=== PATIENT | male | born 1950 | race Hispanic/Latino ===

== ENCOUNTER → 2017-10-30 | Outpatient (CLI) | payer MEDICARE ==
[~2017-10-30] MED LIST: AMBIEN5 MG PO; ASPIR 8181 MG PO; CITALOPRAM HBR20 MG PO; FLOMAX0.4 MG PO; GABAPENTIN300 MG PO; NORVASC5 MG PO; PANTOPRAZOLE SO40 MG PO; SERTRALINE HCL50 MG PO
--- NOTE | 2017-10-30 17:41 | Diagnostic Imaging Report ---
PROCEDURE: X-RAY CHEST, TWO VIEWS COMPARISON: Chest x-ray 01/13/17 INDICATIONS: SHORTNESS OF BREATH FINDINGS: LUNGS: Well-inflated. No soft tissue mass or infiltrate. Vascular markings are normal. PLEURA: No effusions, pleural thickening or pneumothorax. HEART \T\ MEDIASTINUM: The heart is normal in size. Aorta is ectatic and stable in morphology. No hilar lymphadenopathy. BONES \T\ SOFT TISSUES: Stable degenerative changes of the midthoracic spine. DISH should be considered. No focal osseous lesions. CONCLUSION: Stable chest. No active disease. Dictated by: Jose Frazier M.D. on 10/30/2017 at 17:40 Electronically approved by: Jose Frazier M.D. on 10/30/2017 at 17:40
== END | disposition home or self-care (01) ==
LOC: US 13:01
PROVIDERS: ATTEND Urology
DX: C64.2 Malignant neoplasm of left kidney, except renal pelvis (principal); R06.02 Shortness of breath
CPT/HCPCS: 71046; 76770

== ENCOUNTER → 2018-03-13 | Outpatient (CLI) | payer MEDICARE ==
--- NOTE | 2018-03-13 11:40 | Diagnostic Imaging Report ---
PROCEDURE: Frontal and lateral views of the chest. COMPARISON: Patients [facility], , CHEST 2 VIEWS, 10/30/2017, 13:57. INDICATIONS: MALIGNANT NEOPLASM OF KIDNEY FINDINGS: Lines/tubes: None. Lungs: The lungs are well inflated and clear. No pulmonary nodules. There is no evidence of pneumonia or pulmonary edema. Pleura: There is no pleural effusion or pneumothorax. Heart and mediastinum: The heart and the mediastinum are normal. Bones: No acute bony abnormality. IMPRESSION: 1. No acute cardiopulmonary disease. No evidence of metastatic disease in the thorax. Sundar Rodas M.D. Dictated by: Sundar Rodas M.D. on 03/13/2018 at 11:45 Electronically approved by: Sundar Rodas M.D. on 03/13/2018 at 11:45
--- NOTE | 2018-03-13 12:03 | Diagnostic Imaging Report ---
PROCEDURE:US RETROPERITONEAL ( KIDNEY ). COMPARISON:Patients [facility], CT, CT ABDOMEN/PELVIS WO, 02/01/2017, 12:32. Patients [facility], US, US RETROPERITONEAL ( KIDNEY )., 10/30/2017, 13:22. INDICATIONS:Malignant Neoplasm of Kidney TECHNIQUE: Milan-scale and color sonographic images of the bilateral kidneys and bladder where obtained in transverse and longitudinal planes. FINDINGS: RIGHT KIDNEY: 9.9 cm, cortex 2.5 cm Cysts: Several cystic, anechoic lesions are noted: * 3.0 x 2.9 x 2.6 cm lesion in the inferomedial aspect (previously measured 3.1 x 2.6 x 2.1 cm). * 2.5 x 1.5 x 2.0 cm lesion in the mid medial aspect (previously measured 2.3 x 1.2 x 1.3 cm). * 2.3 x 1.6 x 2.0 cm lesion in the mid lateral aspect (not clearly seen in the prior exam.). Solid masses: None Stones: None Hydronephrosis: None Echogenicity: Increased LEFT KIDNEY: 10.1 cm, cortex 2.0 cm Cysts: 2 cystic lesions are noted: * 1.4 x 0.9 x 1.3 cm cystic, anechoic lesion in the mid medial aspect (previously measured 1.0 x 1.0 x 1.0 cm). * 1.7 x 1.4 x 2.0 cm hypoechoic lesion in the mid lateral aspect with questionable thin nonvascular septation (previously measured 1.1 x 0.9 x 1.0 cm). Solid masses: None Stones: None Hydronephrosis: None Echogenicity: Increased Bladder: No focal lesions. Bilateral ureteral jets identified. Small amount of debris is noted in the dependent portion of the bladder lumen. Prostate: 4.2 x 3.6 x 4.4 cm (estimated volume of 36 mL). Nodular contour CONCLUSION: 1. Normal bilateral renal size. Bilateral increased renal cortical echogenicity, consistent with medical renal disease. No hydronephrosis or obstruction. 2. No solid masses are identified. 3. Cystic anechoic lesions consistent with simple cysts in bilateral kidneys are relatively stable, when accounting for technical differences. 4. A 2.0 cm lesion in the left mid lateral aspect is minimally complex. Attention to this lesion on followup renal ultrasound is recommended. 5. Small amount of debris in the dependent portion of the bladder lumen, which may relate to infection. 6. Prostatic enlargement, likely due to BPH. Sundar Rodas M.D. Dictated by: uSndar Rodas M.D. on 03/13/2018 at 12:08 Electronically approved by: Sundar Rodas M.D. on 03/13/2018 at 12:08
== END ==
LOC: US 10:15
PROVIDERS: ATTEND Urology
DX: C64.2 Malignant neoplasm of left kidney, except renal pelvis (principal)
CPT/HCPCS: 71046; 76770

== ENCOUNTER → 2018-09-03 | Outpatient (CLI) | payer MEDICARE ==
--- NOTE | 2018-09-03 13:45 | Diagnostic Imaging Report ---
Frontal and lateral views of the chest. HISTORY: Renal cancer, left COMPARISON: None available. DISCUSSION: Lungs: Low lung volumes result in bibasilar vascular crowding, accentuation of the pulmonary interstitial markings, central pulmonary vasculature, and the cardiac silhouette. Allowing for these limitations, the findings are as follows: Bibasilar atelectasis, could obscure underlying pathology. Otherwise, no evidence of a consolidative pneumonia or pulmonary alveolar edema. Pleura: No pleural effusion or pneumothorax. Heart and mediastinum: The cardiomediastinal silhouette appears unremarkable. Bones: Multilevel flowing nonmarginal syndesmophytes, compatible with DISH (Diffuse idiopathic skeletal hyperostosis). IMPRESSION: 1. Bibasilar atelectasis. If there is concern for metastatic disease, a CT of the chest without contrast would provide a more sensitive evaluation. 2. Otherwise, no acute radiographic abnormality. Signed by: Dr. Markel Smith D.O., M.M.M. on 09/03/2018 1:42 PM
--- NOTE | 2018-09-03 16:33 | Diagnostic Imaging Report ---
EXAM: Renal Ultrasound INDICATION: Left renal malignancy, status post partial nephrectomy 2 years prior. COMPARISON: Renal ultrasound 03/13/2018. TECHNIQUE: Transverse and longitudinal images of the kidneys and bladder were obtained. FINDINGS: Right Kidney: Length: Measures 10.9 x 6.0 x 4.7 cm Appearance: Increased echogenicity. Collecting system: No hydronephrosis Stones: None Cyst/Mass: No evidence of solid mass. Multiple simple appearing anechoic right-sided renal cysts, largest measuring up to 3.1 cm in the inferior pole medially. Left Kidney: Length: Measures 11.4 x 5.3 x 5.2 cm Appearance: Increased echogenicity. Collecting system: No hydronephrosis Stones: None Cyst/Mass: There is a minimally complex cystic lesion measuring up to 1.6 x 1.0 x 1.1 cm in the left mid pole kidney with internal echogenicity, which was present on the prior ultrasound. There is a 1.8 x 1.2 x 1.4 cm predominately anechoic cyst in the left mid pole kidney laterally with possible thin septation, similar to prior ultrasound. No evidence of vascular flow. Bladder: Unremarkable in appearance. Bilateral ureteral jets are noted. IMPRESSION: No evidence of solid renal mass. Minimally complex cystic lesions in the left mid pole kidney measuring up to 1.6 cm and 1.8 cm, similar appearing to prior ultrasound accounting for differences in technique. Attention on follow-up ultrasound is suggested. Additional simple right sided renal cysts. Increased bilateral renal echogenicity, consistent with medical renal disease. Signed by: Dr. Mayito Laird MD on 09/03/2018 2:49 PM
== END ==
LOC: US 12:58
PROVIDERS: ATTEND Urology
DX: C64.2 Malignant neoplasm of left kidney, except renal pelvis (principal)
CPT/HCPCS: 71046; 76770

== ENCOUNTER → 2019-03-07 | Outpatient (CLI) | payer MEDICARE ==
--- NOTE | 2019-03-07 12:16 | Diagnostic Imaging Report ---
EXAMINATION: PA and lateral views of the chest. COMPARISON: Chest two views 09/03/2018 CLINICAL HISTORY: Malignant neoplasm of kidney DISCUSSION: Lines/tubes: None. Lungs: The lungs are well inflated and clear. There is no evidence of pneumonia or pulmonary edema. Pleura: There is no pleural effusion or pneumothorax. Heart and mediastinum: Cardiomediastinal silhouette is unremarkable. Pulmonary vasculature is normal. Bones and soft tissues: No acute bony abnormalities. Degenerative changes in the thoracic spine IMPRESSION: No acute cardiopulmonary abnormalities. No evidence of metastatic disease in the thorax. Signed by: Dr. Sundar Rodas M.D. on 03/07/2019 12:13 PM
--- NOTE | 2019-03-07 14:08 | Diagnostic Imaging Report ---
EXAM: Renal Ultrasound INDICATION: ^MALIG NEOP OF LT KIDNEY COMPARISON: None TECHNIQUE: Transverse and longitudinal images of the kidneys and bladder were obtained. FINDINGS: Right Kidney: Length: 11.1 cm Appearance: Normal echogenicity. Small amount of fluid adjacent to the kidney. Collecting system: No hydronephrosis Stones: None Cyst/Mass: 1.2 x 0.8 x 0.8 cm lower pole cystic lesion with internal hyperechoic area without shadowing. 1.2 x 1.5 x 2.4 cm mid pole anechoic cyst 2.8 x 2.6 x 2.6 cm midpole anechoic cyst. 2.0 x 2.0 x 2.2 cm anechoic upper pole cyst. Left Kidney: Length: 9.2 cm Appearance: Normal echogenicity. Collecting system: No hydronephrosis Stones: None Cyst/Mass: 2.7 x 1.1 x 3.0 cm lower pole anechoic cyst. 1.3 x 0.9 x 1.1 cm hyperechoic focus at the midpole. Bladder: No bladder mass or calculi. Prevoid volume estimate of 71 cc. Right ureteral jet visualized. Prostate: Prostate measures 3.3 x 2.9 x 3.7 cm with estimated volume of 18.6 cc. IMPRESSION: Multiple right renal cysts, essentially unchanged in size compared to the prior renal ultrasound of 09/03/2018. The right lower pole cyst contains an internal hyperechoic area without shadowing which appears new and may represent a soft tissue component although no associated vascularity is seen. Interval increase in size of left lower pole renal cyst, previously measuring up to 1.8 cm and now up to 3 cm. New 1.3 cm hyperechoic midpole focus without shadowing, possibly representing prominent renal sinus fat versus a true mass. RECOMMENDATIONS: Renal mass protocol CT for further evaluation. Signed by: Terrence Jones MD on 03/07/2019 2:05 PM
== END ==
LOC: US 11:45
PROVIDERS: ATTEND Urology
DX: C64.2 Malignant neoplasm of left kidney, except renal pelvis (principal)
CPT/HCPCS: 71046; 76770

== ENCOUNTER → 2019-04-10 | Outpatient (CLI) | payer MEDICARE ==
--- NOTE | 2019-04-10 12:42 | Diagnostic Imaging Report ---
MRI of the abdomen, without contrast, 04/10/2019. History: Renal lesion. Comparison: Ultrasound 03/07/2019, 09/03/2018. Technique: Multiplanar, multisequence imaging of the abdomen was performed without contrast secondary to renal insufficiency. Discussion: Characterization of the renal lesion is limited without IV contrast. Multiple oval circumscribed T1 hypointense T2 hyperintense lesions are present scattered throughout both kidneys. The largest cyst on the right is simple in appearance and located in the interpolar region measuring 3.3 x 3.0 x 3.3 cm. A 1.2 cm right lower pole cyst is also noted without evident mural nodule. In the left renal lower pole, a 2.0 x 2.4 x 2.7 cm cyst is present containing thin septations. The liver, gallbladder, spleen, pancreas, and adrenal glands are unremarkable. The visualized loops of bowel are normal. There is no evidence of adenopathy. Degenerative changes are noted throughout the lumbar spine. IMPRESSION: Limited evaluation without IV contrast. Multiple renal cysts are present bilaterally, including a minimally complex cyst in the left lower pole. The hyperechoic areas described on the ultrasound are not apparent on this noncontrast MRI. Recommend continued sonographic follow-up. Signed by: William Steward on 04/10/2019 12:38 PM
== END ==
LOC: MRI 09:29
PROVIDERS: ATTEND Urology
DX: N18.9 Chronic kidney disease, unspecified (principal)
CPT/HCPCS: 74181

== ENCOUNTER → 2020-04-22 | Outpatient (CLI) | payer MEDICARE ==
--- NOTE | 2020-04-22 16:14 | Diagnostic Imaging Report ---
Exam: CHEST 2 VIEWS Date: 04/22/2020 4:09 PM INDICATION: ^[id number] ^[id number] ^MALIGANT NEOPLASM OF KIDNEY Comparison: 03/07/2019 FINDINGS: Lines/Tubes:None Lungs:The lungs are well inflated. No focal consolidation or pulmonary edema. Pleura:No pleural effusion. No pneumothorax. Heart/Mediastinum:The cardiomediastinal silhouette is normal in size and contour. Bones/Soft Tissues: No acute osseous abnormality. Moderate multilevel degenerative changes of the thoracic spine are noted. Upper abdomen: On lateral view there are a few prominent small bowel loops. IMPRESSION: Negative for acute intrathoracic process. On the lateral view a few dilated loops of small bowel are identified, correlate for any symptoms of obstruction. Consider dedicated imaging if clinically indicated. Signed by: Román Aragon MD on 04/22/2020 4:11 PM
--- NOTE | 2020-04-22 17:00 | Diagnostic Imaging Report ---
EXAM: Renal Ultrasound INDICATION: ^MALIGNANT NEOPLASM OF LEFT KIDNEY COMPARISON: MRI dated 04/10/2019 and ultrasound dated 03/07/2019 TECHNIQUE: Transverse and longitudinal images of the kidneys and bladder were obtained. FINDINGS: Right Kidney: Length: 11.2 cm Appearance: Normal echogenicity. Collecting system: No hydronephrosis Stones: Similar appearance of a hyperechoic 1.5 cm shadowing area at the lower pole. Cyst/Mass: Multiple cysts are noted within the right kidney with the largest measuring up to 3.4 cm at the right lower pole. Previously identified lower pole cystic lesion with internal hyperechoic area without shadowing is partially visualized. Left Kidney: Length: 11.0 cm Appearance: Normal echogenicity. Collecting system: No hydronephrosis Stones: Hyperechoic 0.8 cm lesion noted at the inferior pole the left kidney. Cyst/Mass: Multiple cysts are noted within the left kidney with the largest measuring up to 2.1 cm at the lateral midpole. Bladder: Bladder is partially distended. The ureteral jets are not visualized. Prostate is within normal limits with a volume of 29 cc. IMPRESSION: 1. Redemonstration of multiple bilateral renal cysts. No significant change of mildly complex right inferior pole and multiple other anechoic simple appearing renal cysts. 2. Negative for hydronephrosis or obstructing calculus. Stable areas of hyperechoic nonshadowing appearance measuring up to 1.5 cm of the right lower pole and 0.8 cm at the left lower pole without MRI correlate are indeterminate. Consider postcontrast evaluation with renal protocol CT or MRI. Signed by: Román Aragon MD on 04/22/2020 4:57 PM
== END ==
LOC: US 15:21
PROVIDERS: ATTEND Urology
DX: C64.2 Malignant neoplasm of left kidney, except renal pelvis (principal)
CPT/HCPCS: 71046; 76770

== ENCOUNTER → 2020-05-25 | Outpatient (CLI) | payer MEDICARE | LOC: MRI 13:53 | PROVIDERS: ATTEND Urology | DX: C64.2 Malignant neoplasm of left kidney, except renal pelvis (principal); N18.9 Chronic kidney disease, unspecified | CPT/HCPCS: 74181 ==

== ENCOUNTER → 2021-02-24 | Outpatient (CLI) | payer MEDICARE | LOC: US 13:41 | PROVIDERS: ATTEND Urology | DX: C64.2 Malignant neoplasm of left kidney, except renal pelvis (principal) | CPT/HCPCS: 71046; 76770 ==

== ENCOUNTER → 2021-09-06 | Outpatient (CLI) | payer MEDICARE | LOC: US 08:43 | PROVIDERS: ATTEND Urology | DX: C64.2 Malignant neoplasm of left kidney, except renal pelvis (principal) | CPT/HCPCS: 71046; 76770 ==

== ENCOUNTER → 2022-05-16 | Outpatient (CLI) | payer MEDICARE | LOC: US 09:57 | PROVIDERS: ATTEND Urology | DX: C64.2 Malignant neoplasm of left kidney, except renal pelvis (principal); N18.9 Chronic kidney disease, unspecified | CPT/HCPCS: 76770 ==

== ENCOUNTER → 2022-06-09 | Outpatient (CLI) | payer MEDICARE | LOC: CT 15:27 | PROVIDERS: ATTEND Urology | DX: N20.0 Calculus of kidney (principal) | CPT/HCPCS: 74176 ==

== ENCOUNTER → 2022-12-13 | Outpatient (CLI) | payer MEDICARE | LOC: US 08:53 | PROVIDERS: ATTEND Urology | DX: C64.2 Malignant neoplasm of left kidney, except renal pelvis (principal); D41.01 Neoplasm of uncertain behavior of right kidney; N20.0 Calculus of kidney | CPT/HCPCS: 71046; 74176; 76770 ==

== ENCOUNTER → 2023-12-15 | Outpatient (REF) | payer MEDICARE | LOC: RAD 13:13 | PROVIDERS: ATTEND Internal Medicine | DX: M25.472 Effusion, left ankle (principal) ==

== ENCOUNTER 2024-03-29 08:44 | Inpatient (IN) | payer MEDICARE ==
[~2024-03-29] VITALS: Ht 162.6 cm; Wt 69.4 kg
[~2024-03-29 08:44] MED LIST changes: +FARXIGA10 MG PO; +FISH OIL 1,0001 EAC7 PO; +FUROSEMIDE40 MG PO; +LIPITOR10 MG PO; +METOPROLOL SUCC25 MG PO; +RAYALDEE30 MCG PO
[2024-03-29 10:02] LABS: BASOPHILS % 0.3 % (0.0-1.0); EOSINOPHILS # (AUTO) 0.3 (0.0-0.4); EOSINOPHILS % 4.4 % (0.0-6.0); HEMATOCRIT 36.4 % (38.2-49.6); HEMOGLOBIN 11.2 g/dL (14.0-18.0); LYMPHOCYTES # (AUTO) 1.9 (1.0-3.2); LYMPHOCYTES % 26.8 % (18.0-39.1); MEAN CORPUSCULAR HEMOGLOBIN 24.8 pg (28-32); MEAN CORPUSCULAR HGB CONC 30.8 g/dL (31-35); MEAN CORPUSCULAR VOLUME 80.7 fL (81-99); MONOCYTES # (AUTO) 0.6 (0.2-0.8); MONOCYTES % 8.1 % (4.4-11.3); NEUTROPHILS # (AUTO) 4.2 (2.1-6.9); PLATELET COUNT 148 x10e3/uL (140-360); RED BLOOD COUNT 4.51 x10e6/uL (4.3-5.7); RED CELL DISTRIBUTION WIDTH 20.9 % (11.7-14.4); WHITE BLOOD COUNT 7.05 x10e3/uL (4.8-10.8)
[2024-03-29] MEDS: SODIUM CHLORIDE 0.9% 500ML 500 ML ONE (10:10)
[2024-03-29] MEDS: PIPERACILLIN/TAZOBACTAM 3.375 GM VIAL ONE (10:11)
[2024-03-29] MEDS: GENTAMICIN 80MG/NS 100 ML 200 ML IV ONE (10:12)
[2024-03-29 10:14] LABS: INR 0.98; PROTHROMBIN TIME 13.5 seconds (11.9-14.5)
[2024-03-29 10:16] LABS: PARTIAL THROMBOPLASTIN TIME 27.9 seconds (23.8-35.5)
[2024-03-29 10:19] LABS: CALCIUM 9.2 mg/dL (8.4-10.2); CREATININE, SERUM 5.96 mg/dL (0.72-1.25)
[2024-03-29] MEDS ORDERED: FLUCONAZOLE 200 MG/100 ML IV ONE (11:38)
[2024-03-29] MEDS: FLUCONAZOLE 100 MG/NS 50 ML 50 ML IV SCH (12:30)
[2024-03-29] MEDS ORDERED: IOPAMIDOL 610MG/1ML 300 MG/ML VIAL IV ONE (13:02)
[2024-03-29] MEDS ORDERED: FENTANYL CITRATE/PF 100MCG/2 ML INJ ONE (13:38)
[2024-03-29] MEDS ORDERED: PROPOFOL IV EMULSION 10 MG/ML 20 ML VIAL ONE (14:13)
[2024-03-29] MEDS ORDERED: ONDANSETRON HCL INJ 2MG/ML 2ML 2 MG/ML VIAL ONE (14:13)
[2024-03-29] MEDS ORDERED: EPHEDRINE SULFATE INJ 50 MG/ML VIAL ONE (14:13)
[2024-03-29] MEDS ORDERED: DEXAMETHASONE SOD PHOS INJ 4 MG/ML SDV ONE (14:13)
[2024-03-29] MEDS ORDERED: SEVOFLURANE INHAL SOLN 250 ML PEN BTL ONE (14:13)
[2024-03-29] MEDS ORDERED: ACETAMINOPHEN 1000 MG/100 ML IV ONE (14:13)
[2024-03-29] MEDS ORDERED: LIDOCAINE HCL 2% LOCAL INJ 5 ML SDV VIAL INJ ONE (14:13)
[2024-03-29] MEDS ORDERED: ACETAMINOPHEN/CODEINE 300MG - 30MG TAB PO PRN (14:45)
[2024-03-29] MEDS ORDERED: ONDANSETRON HCL INJ 2MG/ML 2ML 2 MG/ML VIAL IV PRN (14:45)
[2024-03-29] MEDS ORDERED: DIPHENHYDRAMINE HCL 25 MG CAP PO PRN (14:45)
[2024-03-29] MEDS ORDERED: ACETAMINOPHEN 1000 MG/100 ML IV PRN (14:45)
[2024-03-29 15:57] LABS: BASOPHILS % 0.2 % (0.0-1.0); EOSINOPHILS # (AUTO) 0.2 (0.0-0.4); EOSINOPHILS % 2.1 % (0.0-6.0); HEMATOCRIT 35.7 % (38.2-49.6); HEMOGLOBIN 11.2 g/dL (14.0-18.0); LYMPHOCYTES # (AUTO) 1.3 (1.0-3.2); LYMPHOCYTES % 15.6 % (18.0-39.1); MEAN CORPUSCULAR HEMOGLOBIN 25.1 pg (28-32); MEAN CORPUSCULAR HGB CONC 31.4 g/dL (31-35); MEAN CORPUSCULAR VOLUME 79.9 fL (81-99); MONOCYTES # (AUTO) 0.2 (0.2-0.8); NEUTROPHILS # (AUTO) 6.4 (2.1-6.9); NEUTROPHILS % 79.7 % (38.7-80.0); PLATELET COUNT 120 x10e3/uL (140-360); RED BLOOD COUNT 4.47 x10e6/uL (4.3-5.7); RED CELL DISTRIBUTION WIDTH 20.7 % (11.7-14.4); WHITE BLOOD COUNT 8.02 x10e3/uL (4.8-10.8)
[2024-03-29 16:13] LABS: ANION GAP 15.7 mmol/L (8-16); CALCIUM 8.7 mg/dL (8.4-10.2); CREATININE, SERUM 5.65 mg/dL (0.72-1.25); POTASSIUM 3.7 mmol/L (3.5-5.1)
[2024-03-29 17:00] VITALS: BP 125/76; PULSE 82; RESP 20; TEMP 98.1; O2SAT 100
[2024-03-29] MEDS: SENNA-S TABLET PO SCH (17:00)
[2024-03-29] MEDS ORDERED: DEXTROSE 50% SYRINGE 50 ML IV PRN (17:30)
[2024-03-29] MEDS ORDERED: MELATONIN 3 MG TAB PO PRN (17:45)
[2024-03-29 18:13] VITALS: BP 125/76; PULSE 82; RESP 20; TEMP 98.1; O2SAT 100
[2024-03-29 20:00] VITALS: BP 124/82; PULSE 102; RESP 18; TEMP 97.9; O2SAT 98
[2024-03-29] MEDS: PHENAZOPYRIDINE HCL 100 MG TAB PO PRN (20:24)
[2024-03-29] MEDS: INSULIN REGULAR, HUMAN 100 UNIT/1 ML SQ SCH (21:00)
[2024-03-29] MEDS: ATORVASTATIN 40 MG TAB PO SCH (22:01)
[2024-03-29] MEDS: SODIUM CHLORIDE 0.9% 1000ML 1,000 ML IV SCH (22:01)
[2024-03-30] VITALS: BP 123/77; PULSE 83; RESP 18; TEMP 97.8; O2SAT 99
[2024-03-30 04:00] VITALS: BP 145/83; PULSE 70; RESP 18; TEMP 97.6; O2SAT 97
[2024-03-30 06:15] LABS: BASOPHILS % 0.2 % (0.0-1.0); HEMATOCRIT 34.2 % (38.2-49.6); HEMOGLOBIN 10.7 g/dL (14.0-18.0); LYMPHOCYTES # (AUTO) 0.7 (1.0-3.2); LYMPHOCYTES % 5.5 % (18.0-39.1); MEAN CORPUSCULAR HEMOGLOBIN 25.3 pg (28-32); MEAN CORPUSCULAR HGB CONC 31.3 g/dL (31-35); MEAN CORPUSCULAR VOLUME 80.9 fL (81-99); MONOCYTES # (AUTO) 0.5 (0.2-0.8); MONOCYTES % 4.1 % (4.4-11.3); NEUTROPHILS # (AUTO) 11.3 (2.1-6.9); NEUTROPHILS % 89.6 % (38.7-80.0); PLATELET COUNT 132 x10e3/uL (140-360); RED BLOOD COUNT 4.23 x10e6/uL (4.3-5.7); WHITE BLOOD COUNT 12.65 x10e3/uL (4.8-10.8)
[2024-03-30 06:40] LABS: CALCIUM 9.2 mg/dL (8.4-10.2); CREATININE, SERUM 6.1 mg/dL (0.72-1.25)
[2024-03-30 08:00] VITALS: BP 136/75; PULSE 76; RESP 18; TEMP 97.6; O2SAT 98
[2024-03-30] MEDS: PANTOPRAZOLE SOD 40 MG TABEC PO SCH (09:00)
[2024-03-30] MEDS: SERTRALINE HCL 50 MG TAB PO SCH (09:01)
[2024-03-30] MEDS: GABAPENTIN 300 MG CAP PO SCH (09:01)
[2024-03-30] MEDS: FUROSEMIDE 20 MG TAB PO SCH (09:06)
[2024-03-30 16:00] VITALS: BP 134/77; PULSE 73; RESP 18; TEMP 98; O2SAT 99
[2024-03-30] MEDS: GENTAMICIN SULFATE 15 GM CR TP SCH (17:11)
[2024-03-30 20:00] VITALS: BP_SYST 134; BP_SYST 136; BP_DIAS 73; BP_DIAS 77; PULSE 69; PULSE 73; RESP 18; TEMP 97.3; TEMP 98; O2SAT 100; O2SAT 99
[2024-03-30 20:31] VITALS: BP 136/73; PULSE 69; RESP 18; TEMP 97.3; O2SAT 100
[2024-03-31] VITALS (9 sets, daily range): BP systolic 128–133; BP diastolic 64–74; PULSE 68–80; RESP 18; TEMP 97.6–98.7; O2SAT 98–100
[2024-03-31 07:45] LABS: BASOPHILS % 0.1 % (0.0-1.0); EOSINOPHILS % 0.3 % (0.0-6.0); HEMATOCRIT 29.1 % (38.2-49.6); HEMOGLOBIN 9.1 g/dL (14.0-18.0); LYMPHOCYTES # (AUTO) 1.3 (1.0-3.2); LYMPHOCYTES % 14.6 % (18.0-39.1); MEAN CORPUSCULAR HEMOGLOBIN 25.4 pg (28-32); MEAN CORPUSCULAR HGB CONC 31.3 g/dL (31-35); MEAN CORPUSCULAR VOLUME 81.3 fL (81-99); MONOCYTES # (AUTO) 0.6 (0.2-0.8); MONOCYTES % 7.1 % (4.4-11.3); NEUTROPHILS # (AUTO) 6.8 (2.1-6.9); NEUTROPHILS % 77.3 % (38.7-80.0); PLATELET COUNT 116 x10e3/uL (140-360); RED BLOOD COUNT 3.58 x10e6/uL (4.3-5.7); RED CELL DISTRIBUTION WIDTH 21.4 % (11.7-14.4); WHITE BLOOD COUNT 8.77 x10e3/uL (4.8-10.8)
[2024-03-31 08:07] LABS: CALCIUM 8.4 mg/dL (8.4-10.2); CREATININE, SERUM 6.08 mg/dL (0.72-1.25)
[2024-03-31] MEDS ORDERED: LACTULOSE SYRUP 20 GM/30 ML UDC PO PRN (09:00)
[2024-03-31] MEDS: LACTULOSE SYRUP 20 GM/30 ML UDC PO ONE (09:10)
[2024-04-01] VITALS: BP 131/71; PULSE 87; RESP 18; TEMP 97.6; O2SAT 100
[2024-04-01 04:00] VITALS: BP 135/72; PULSE 83; RESP 18; TEMP 98.4; O2SAT 100
[2024-04-01 05:09] LABS: BASOPHILS % 0.1 % (0.0-1.0); EOSINOPHILS # (AUTO) 0.2 (0.0-0.4); EOSINOPHILS % 2.6 % (0.0-6.0); HEMATOCRIT 29.3 % (38.2-49.6); HEMOGLOBIN 8.7 g/dL (14.0-18.0); LYMPHOCYTES # (AUTO) 1.5 (1.0-3.2); LYMPHOCYTES % 19.8 % (18.0-39.1); MEAN CORPUSCULAR HEMOGLOBIN 24.5 pg (28-32); MEAN CORPUSCULAR HGB CONC 29.7 g/dL (31-35); MEAN CORPUSCULAR VOLUME 82.5 fL (81-99); MONOCYTES # (AUTO) 0.6 (0.2-0.8); MONOCYTES % 7.2 % (4.4-11.3); NEUTROPHILS # (AUTO) 5.3 (2.1-6.9); NEUTROPHILS % 69.8 % (38.7-80.0); PLATELET COUNT 124 x10e3/uL (140-360); RED BLOOD COUNT 3.55 x10e6/uL (4.3-5.7); RED CELL DISTRIBUTION WIDTH 21.6 % (11.7-14.4); WHITE BLOOD COUNT 7.63 x10e3/uL (4.8-10.8)
[2024-04-01 05:29] LABS: CALCIUM 8.2 mg/dL (8.4-10.2); CREATININE, SERUM 5.86 mg/dL (0.72-1.25)
[2024-04-01 07:46] LABS: BASOPHILS % (MANUAL) 2 % (0-1.5); EOSINOPHILS % (MANUAL) 3 % (0-7); LYMPHOCYTES % (MANUAL) 26 % (19-48); MONOCYTES % (MANUAL) 4 % (3.4-9.0); NEUTROPHILS % (MANUAL) 65 % (40-74)
[2024-04-01 07:47] LABS: ANISOCYTOSIS MODERATE; HYPOCHROMASIA MODERATE; PLATELET ESTIMATE SLIGHTLY DECREASED; PLATELET MORPHOLOGY COMMENT NORMAL; RBC MORPHOLOGY COMMENT ABNORMAL
[2024-04-01 09:06] VITALS: BP 127/66; PULSE 87; RESP 19; TEMP 98.4; O2SAT 100
[2024-04-01 09:52] VITALS: BP 127/66; PULSE 87; RESP 19; TEMP 98.4; O2SAT 100
[2024-04-01] MEDS ORDERED: HEPARIN SOD (PORCINE) 1000 UNIT/ML SDV IV PRN (10:15)
[2024-04-01] MEDS ORDERED: SODIUM CHLORIDE 0.9% 1000ML 2,000 ML IV PRN (10:15)
[2024-04-01] MEDS ORDERED: ONDANSETRON HCL 4 MG ORAL DISINTEGRATING TAB PO PRN (10:30)
[2024-04-01] MEDS: FLUCONAZOLE 100 MG TAB PO SCH (11:52)
[2024-04-01 16:02] VITALS: BP 144/87; PULSE 85; RESP 20; TEMP 98.1; O2SAT 100
[2024-04-01 20:00] VITALS: BP 142/72; PULSE 75; RESP 18; TEMP 98.6; O2SAT 97
[2024-04-02] VITALS (7 sets, daily range): BP systolic 139–154; BP diastolic 72–85; PULSE 75–86; RESP 16–20; TEMP 97.5–98.9; O2SAT 98–100
[2024-04-02 05:12] LABS: BASOPHILS % 0.1 % (0.0-1.0); EOSINOPHILS # (AUTO) 0.3 (0.0-0.4); HEMATOCRIT 29.8 % (38.2-49.6); HEMOGLOBIN 9.1 g/dL (14.0-18.0); LYMPHOCYTES # (AUTO) 1.5 (1.0-3.2); LYMPHOCYTES % 20.8 % (18.0-39.1); MEAN CORPUSCULAR HEMOGLOBIN 25.1 pg (28-32); MEAN CORPUSCULAR HGB CONC 30.5 g/dL (31-35); MEAN CORPUSCULAR VOLUME 82.1 fL (81-99); MONOCYTES # (AUTO) 0.6 (0.2-0.8); MONOCYTES % 8.2 % (4.4-11.3); NEUTROPHILS # (AUTO) 4.8 (2.1-6.9); NEUTROPHILS % 66.5 % (38.7-80.0); PLATELET COUNT 116 x10e3/uL (140-360); RED BLOOD COUNT 3.63 x10e6/uL (4.3-5.7); RED CELL DISTRIBUTION WIDTH 21.5 % (11.7-14.4); WHITE BLOOD COUNT 7.17 x10e3/uL (4.8-10.8)
[2024-04-02 05:36] LABS: ANION GAP 13.7 mmol/L (8-16); CALCIUM 8.3 mg/dL (8.4-10.2); CREATININE, SERUM 5.77 mg/dL (0.72-1.25); POTASSIUM 3.7 mmol/L (3.5-5.1)
[2024-04-03] VITALS (7 sets, daily range): BP systolic 108–143; BP diastolic 73–82; PULSE 72–88; RESP 16–18; TEMP 97.1–98.3; O2SAT 98–100
[2024-04-04 03:20] VITALS: BP 135/76; PULSE 79; RESP 18; TEMP 98.2; O2SAT 99
[2024-04-04 05:07] LABS: HEMATOCRIT 28.5 % (38.2-49.6); HEMOGLOBIN 8.7 g/dL (14.0-18.0); MEAN CORPUSCULAR HEMOGLOBIN 24.9 pg (28-32); MEAN CORPUSCULAR HGB CONC 30.5 g/dL (31-35); MEAN CORPUSCULAR VOLUME 81.7 fL (81-99); PLATELET COUNT 136 x10e3/uL (140-360); RED BLOOD COUNT 3.49 x10e6/uL (4.3-5.7); RED CELL DISTRIBUTION WIDTH 20.9 % (11.7-14.4); WHITE BLOOD COUNT 6.56 x10e3/uL (4.8-10.8)
[2024-04-04 05:48] LABS: ANION GAP 12.1 mmol/L (8-16); CALCIUM 8.3 mg/dL (8.4-10.2); CREATININE, SERUM 5.8 mg/dL (0.72-1.25)
[2024-04-04 05:50] LABS: POTASSIUM 3.1 mmol/L (3.5-5.1)
[2024-04-04 07:31] VITALS: BP 144/75; PULSE 84; RESP 18; TEMP 98.6; O2SAT 98
[2024-04-04 09:41] LABS: EOSINOPHILS % (MANUAL) 9 % (0-7); LYMPHOCYTES % (MANUAL) 19 % (19-48); MONOCYTES % (MANUAL) 4 % (3.4-9.0); NEUTROPHILS % (MANUAL) 68 % (40-74)
[2024-04-04 09:42] LABS: ANISOCYTOSIS MODERATE; HYPOCHROMASIA SLIGHT; PLATELET ESTIMATE ADEQUATE; PLATELET MORPHOLOGY COMMENT NORMAL; RBC MORPHOLOGY COMMENT ABNORMAL
[2024-04-04] MEDS: POTASSIUM CHLORIDE 20 MEQ TAB CR PO ONE (10:05)
[2024-04-04 10:25] VITALS: BP 144/75; PULSE 84; RESP 18; TEMP 98.6; O2SAT 98
[2024-04-04 11:28] VITALS: BP 141/80; PULSE 83; RESP 19; TEMP 97.4; O2SAT 99
[2024-04-04] MEDS: ACETAMINOPHEN 325 MG TAB PO PRN (14:33)
[2024-04-04 15:56] VITALS: BP 133/79; PULSE 77; RESP 17; TEMP 98.6; O2SAT 100
== END 2024-04-04 18:41 | disposition home or self-care (01) | DRG 713 ==
LOC: OR 08:44 → PACU V 14:43 → MED/SURG 16:14
PROVIDERS: ADMIT Internal Medicine; ATTEND Internal Medicine
PROC: 0V508ZZ Destruction of Prostate, Via Natural or Artificial Opening Endoscopic (ICD-10-PCS; 2024-03-29)
PROC: BT141ZZ Fluoroscopy of Kidneys, Ureters and Bladder using Low Osmolar Contrast (ICD-10-PCS; 2024-03-29)
PROC: 3E1M39Z Irrigation of Peritoneal Cavity using Dialysate, Percutaneous Approach (ICD-10-PCS; principal; 2024-04-02)
DX: N40.1 Benign prostatic hyperplasia with lower urinary tract symptoms (principal); N18.6 End stage renal disease; I12.0 Hypertensive chronic kidney disease with stage 5 chronic kidney disease or end stage renal disease; R31.0 Gross hematuria; N32.81 Overactive bladder; Z99.2 Dependence on renal dialysis; M19.90 Unspecified osteoarthritis, unspecified site; F41.9 Anxiety disorder, unspecified; D63.1 Anemia in chronic kidney disease; D72.829 Elevated white blood cell count, unspecified; R73.03 Prediabetes; E78.5 Hyperlipidemia, unspecified; G62.9 Polyneuropathy, unspecified; Z90.5 Acquired absence of kidney; Z86.73 Personal history of transient ischemic attack (TIA), and cerebral infarction without residual deficits; Z85.528 Personal history of other malignant neoplasm of kidney; E66.9 Obesity, unspecified; Z68.26 Body mass index [BMI] 26.0-26.9, adult; Z87.440 Personal history of urinary (tract) infections; Z86.718 Personal history of other venous thrombosis and embolism; Z84.1 Family history of disorders of kidney and ureter
CPT/HCPCS: 36415; 71046; 74420; 80048; 82948; 83735; 85007; 85025; 85027; 85610; 85730; 86706; 87086; 87350; 93005; J1100; J1450; J1580; J1644; J2001; J2405; J2543; J7030; J7040